=== PATIENT | female | born 1995 | race Two or more races ===

== ENCOUNTER 2022-06-08 02:40 | Emergency (ER) | payer OTHER ==
[~2022-06-08] VITALS: Ht 157.5 cm; Wt 42.2 kg
[2022-06-08] MEDS ORDERED: FLONASE16 GM NASAL (06:38)
== END 2022-06-08 06:44 ==
LOC: ER 02:40
DX: U07.1 COVID-19 (principal); R42 Dizziness and giddiness; J06.9 Acute upper respiratory infection, unspecified